=== PATIENT | female | born 1970 | race Caucasian/White ===

== ENCOUNTER 2020-10-22 01:33 | Emergency (ER) | payer OTHER ==
[~2020-10-22 01:33] MED LIST: ACIPHEX20 M1 PO
[2020-10-22] MEDS ORDERED: PEPCID AC20 MG PO (02:42)
[2020-10-22] MEDS ORDERED: MEDROL 4MG DOSEP4 MG PO (02:42)
[2020-10-22] MEDS ORDERED: ATARAX25 MG PO (02:42)
== END 2020-10-22 02:52 | disposition home or self-care (01) ==
LOC: FER 01:33
DX: L50.9 Urticaria, unspecified (principal)
CPT/HCPCS: 99282; J1200; J2930; J7030